=== PATIENT | female | born 1995 | race Caucasian/White ===

== ENCOUNTER 2016-03-02 00:42 | Emergency (ER) | payer BC, OTHER ==
[~2016-03-02] VITALS: Ht 162.6 cm; Wt 56.5 kg
[~2016-03-02 00:42] MED LIST: OTC HEARTBURN MED; Z.0.BCPILL PO
[2016-03-02 00:47] VITALS: BP 147/64; PULSE 124; RESP 20; TEMP 98; O2SAT 99
[2016-03-02 00:58] VITALS: BP 130/65; PULSE 103; RESP 18; O2SAT 99
[2016-03-02] MEDS ORDERED: PRED20 PO (01:00)
[2016-03-02] MEDS ORDERED: methylPREDNISolone SOD SUCC 125 MG/2 ML VIAL IM ONE (01:00)
--- NOTE | 2016-03-02 01:00 | PD ---
HPI Chief Complaint: Allergic/Adverse Reaction Time Seen by Provider: 00:54 Travel History International Travel<30 days: No Contact w/Intl Traveler<30days: No Traveled to known affect area: No History of Present Illness HPI 20-year-old female here for allergic reaction. Patient states that she got out of the shower this evening around midnight and developed itchy blotchy rash along the torso and extremities extending into the face. Feels as though her lips are slightly swollen. No swelling within the posterior pharynx, difficulty swallowing, difficulty breathing or vomiting. No known allergies and denies any new lotions, soaps or detergent but believes that it must been something that she was using in the shower. PFSH Past Medical History Depression: Yes Diminished Hearing: No Immunizations Current: Yes ?: Not LMP: 02/28/16 Past Surgical History Tympanostomy Tube: Yes Social History Alcohol Use: No Tobacco Use: No Substance Use: No Allergies-Medications (Allergen,Severity, Reaction): Coded Allergies: No Known Allergies (Unverified , 03/02/16) Reported Meds & Prescriptions Reported Meds & Active Scripts Active No Active Prescriptions or Reported Medications Review of Systems Except as stated in HPI: all other systems reviewed are Neg Physical Exam Narrative GENERAL: Well-appearing female in no acute distress SKIN: Warm and dry. Macular urticaria along the torso, extremities and face. No appreciable swelling of the lips. HEAD: Normocephalic. EYES: n o scleral icterus. No injection or drainage. ENT: Posterior pharynx is clear without swelling Mucous membranes pink and moist. NECK: Supple without stridor CARDIOVASCULAR: Tachycardic, normalized upon recheck. No murmur appreciated. RESPIRATORY: No accessory muscle use. Clear to auscultation. Breath sounds equal bilaterally. MUSCULOSKELETAL: Normal gait NEUROLOGICAL: Awake and alert. Normal speech. PSYCHIATRIC: Appropriate mood and affect; insight and judgment normal. Data Data Last Documented VS Vital Signs Date Time Temp Pulse Resp B/P Pulse Ox O2 Delivery O2 Flow Rate FiO2 03/02/16 00:47 98.0 124 20 147/64 99 Room Air MDM Medical Decision Making Medical Screen Exam Complete: Yes Emergency Medical Condition: Yes Medical Record Reviewed: Yes Differential Diagnosis 20-year-old female here for possible allergic reaction. Differential includes anaphylaxis, allergic reaction, medication allergy, urticaria. Narrative Course Patient has artery taken Benadryl prior to arrival. Was given Solu-Medrol here will be discharged home with steroids. No evidence of anaphylaxis or indications for epinephrine. Diagnosis Primary Impression: Allergic reaction Qualified Code: T78.40XA - Allergic reaction, initial encounter Additional Impression: Urticaria Referrals: Primary Care Physician as needed Med/Other Pt SpecificInfo: Prescription(s) given Scripts Prednisone 20 Mg Tab40 Mg PO DAILY 3 Days Ref 0 Prov:Jessica Dan MD 03/02/16 Disposition: DISCHARGE HOME Condition: Stable Jessica Dan MD Mar 02, 2016 01:00
== END 2016-03-02 01:22 | disposition home or self-care (01) ==
LOC: NEPE 00:42
DX: T78.40XA Allergy, unspecified, initial encounter (principal); L50.9 Urticaria, unspecified; X58.XXXA Exposure to other specified factors, initial encounter
CPT/HCPCS: 96372; 99283; J2930